=== PATIENT | male | born 1990 | race Caucasian/White ===

== ENCOUNTER 2017-06-25 07:30 | Emergency (ER) | payer SELFPAY ==
[~2017-06-25] VITALS: Ht 154.9 cm; Wt 57.0 kg
[2017-06-25] MEDS ORDERED: LORAZEPAM 2MG/ML CPJ IV STA (07:34)
[2017-06-25] MEDS ORDERED: OLANZAPINE 10 MG/VIAL IM STA (07:34)
[2017-06-25 08:01] LABS: BASOPHILS % 0.7 % (0.0-2.0); EOSINOPHILS % 4.4 % (0.0-5.0); HEMATOCRIT. 42.6 % (42.0-52.0); HEMOGLOBIN. 14.5 g/dL (14.0-18.0); LYMPHOCYTES % 34.6 % (20.0-50.0); MEAN CORPUSCULAR HEMOGLOBIN 31.9 pg (28.0-32.0); MEAN CORPUSCULAR VOLUME 93.6 fL (80.0-94.0); MEAN PLATELET VOLUME 7.3 fl (7.4-10.4); MONOCYTES % 10.6 % (2.0-8.0); NEUTROPHILS % 49.7 % (40.0-76.0); PLATELET 211 x1000/uL (130-400); RED BLOOD CELL COUNT 4.55 mill/uL (4.7-6.1); RED CELL DISTRIBUTION WIDTH 13.7 % (11.6-14.6)
[2017-06-25 08:14] LABS: AMMONIA 34 uMol/L (<32)
[2017-06-25 08:23] LABS: CARBON DIOXIDE 28 mEq/L (21-32); CHLORIDE 107 mEq/L (98-107); ETHANOL BLOOD < 10 mg/dL
[2017-06-25 09:27] LABS: *AMPHETAMINES SCREEN URINE PRESUMTIVE POSITIVE (NEGATIVE); *BARBITURATES SCREEN URINE NEGATIVE (NEGATIVE); *BENZODIAZEPINES SCREEN URINE NEGATIVE (NEGATIVE); *COCAINE SCREEN URINE NEGATIVE (NEGATIVE); CANNABINOID URINE SCREEN PRESUMTIVE POSITIVE (NEGATIVE); METHADONE URINE SCREEN NEGATIVE (NEGATIVE); OPIATES URINE SCREEN NEGATIVE (NEGATIVE); PHENCYCLIDINE URINE SCREEN NEGATIVE (NEGATIVE)
[2017-06-25 09:30] LABS: GLUCOSE URINE NEGATIVE (NEGATIVE); KETONES URINE TRACE (NEGATIVE); LEUKOCYTE ESTERASE URINE 3+ (NEGATIVE); NITRITE URINE NEGATIVE (NEGATIVE); OCCULT BLOOD URINE NEGATIVE (NEGATIVE); PH URINE 6.5 (4.5-8.0); PROTEIN URINE NEGATIVE (NEGATIVE); SPECIFIC GRAVITY URINE 1.022 (1.005-1.030)
[2017-06-25 09:33] LABS: CLARITY URINE CLOUDY (CLEAR); COLOR URINE DARK YELLOW (YELLOW)
[2017-06-25] MEDS ORDERED: CEFTRIAXONE SODIUM 250 MG/VIAL IM ONE (10:15)
[2017-06-25] MEDS ORDERED: AZITHROMYCIN 500 MG in DEXT 5% WATER 250 ML IV SCH (10:15)
[2017-06-25 14:04] VITALS: BP 115/69
== END 2017-06-25 14:49 | disposition home or self-care (01) ==
LOC: ER 07:41
DX: F15.10 Other stimulant abuse, uncomplicated (principal); F20.9 Schizophrenia, unspecified
CPT/HCPCS: 36415; 80053; 80305; 80307; 80329; 81001; 82140; 84443; 85025; 93005; 96372; 96374; 96375; 99285; G0482; J0456; J0696; J2060; J3490; Z7610; J7060; A4315

== ENCOUNTER 2017-08-07 05:45 | Emergency (ER) | payer MEDICAID ==
[~2017-08-07] VITALS: Ht 157.5 cm; Wt 57.0 kg
[2017-08-07] MEDS ORDERED: LORAZEPAM 2MG/ML CPJ IM STA (06:33)
[2017-08-07] MEDS ORDERED: OLANZAPINE 10 MG/VIAL IM ONE ×2 (07:00→13:15)
[2017-08-07 07:34] LABS: BASOPHILS % 0.4 % (0.0-2.0); EOSINOPHILS % 1.9 % (0.0-5.0); HEMATOCRIT. 42.7 % (42.0-52.0); HEMOGLOBIN. 14.9 g/dL (14.0-18.0); LYMPHOCYTES % 23.8 % (20.0-50.0); MEAN CORPUSCULAR HEMOGLOBIN 31.8 pg (28.0-32.0); MEAN CORPUSCULAR VOLUME 91.2 fL (80.0-94.0); MEAN PLATELET VOLUME 7.4 fl (7.4-10.4); NEUTROPHILS % 64.9 % (40.0-76.0); PLATELET 174 x1000/uL (130-400); RED BLOOD CELL COUNT 4.68 mill/uL (4.7-6.1); RED CELL DISTRIBUTION WIDTH 13.8 % (11.6-14.6)
[2017-08-07 07:48] LABS: CARBON DIOXIDE 25 mEq/L (21-32); CHLORIDE 106 mEq/L (98-107); ETHANOL BLOOD < 10 mg/dL
[2017-08-07 08:51] LABS: CLARITY URINE CLEAR (CLEAR); COLOR URINE YELLOW (YELLOW); GLUCOSE URINE NEGATIVE (NEGATIVE); KETONES URINE 1+ (NEGATIVE); LEUKOCYTE ESTERASE URINE TRACE (NEGATIVE); NITRITE URINE NEGATIVE (NEGATIVE); OCCULT BLOOD URINE NEGATIVE (NEGATIVE); PH URINE 6.5 (4.5-8.0); PROTEIN URINE 1+ (NEGATIVE); SPECIFIC GRAVITY URINE 1.018 (1.005-1.030)
[2017-08-07 09:25] LABS: *AMPHETAMINES SCREEN URINE PRESUMTIVE POSITIVE (NEGATIVE); *BARBITURATES SCREEN URINE NEGATIVE (NEGATIVE); *BENZODIAZEPINES SCREEN URINE NEGATIVE (NEGATIVE); *COCAINE SCREEN URINE NEGATIVE (NEGATIVE); CANNABINOID URINE SCREEN PRESUMTIVE POSITIVE (NEGATIVE); METHADONE URINE SCREEN NEGATIVE (NEGATIVE); OPIATES URINE SCREEN NEGATIVE (NEGATIVE); PHENCYCLIDINE URINE SCREEN NEGATIVE (NEGATIVE)
[2017-08-07] MEDS ORDERED: LORAZEPAM 2MG/ML CPJ IV ONE (10:15)
[2017-08-07 11:28] LABS: HEPATITIS B SURFACE ANTIGEN NEGATIVE
[2017-08-07 21:20] VITALS: BP 119/81
== END 2017-08-07 22:32 | disposition home or self-care (01) ==
LOC: ER 05:46
DX: F15.129 Other stimulant abuse with intoxication, unspecified (principal); R45.1 Restlessness and agitation; R44.0 Auditory hallucinations; R44.1 Visual hallucinations; F99 Mental disorder, not otherwise specified; F91.8 Other conduct disorders; Z78.1 Physical restraint status; Z91.19 Patient's noncompliance with other medical treatment and regimen
CPT/HCPCS: 36415; 80053; 80305; 81001; 85025; 93005; 96372; 96374; 99285; G0482; J2060; J3490; Z7610; A4315

== ENCOUNTER 2021-05-08 05:36 | Emergency (ER) | payer MEDICAID ==
[~2021-05-08] VITALS: Ht 167.6 cm; Wt 55.0 kg
[2021-05-08] MEDS: LORAZEPAM 1MG TABLET PO ONE (06:17)
[2021-05-08] MEDS: KETOROLAC 60MG/2ML VIAL IM ONE (06:18)
[2021-05-08] MEDS ORDERED: IBUP-2029 MT (06:43)
[2021-05-08] MEDS ORDERED: LORA-249 MT (06:43)
[2021-05-08 06:56] VITALS: BP 127/89
== END 2021-05-08 06:57 | disposition home or self-care (01) ==
LOC: ER 05:36
DX: F15.10 Other stimulant abuse, uncomplicated (principal); Z94.4 Liver transplant status
CPT/HCPCS: 96372; 99283; J1885; Z7610

== ENCOUNTER 2021-09-14 17:57 | Emergency (ER) | payer MEDICAID ==
[~2021-09-14] VITALS: Ht 162.6 cm; Wt 53.0 kg
[~2021-09-14 17:57] MED LIST: IBUP-2029 MT; LORA-249 MT
[2021-09-14] MEDS ORDERED: SODIUM CHLORIDE 0.9% 1,000 ML IV ONE (18:45)
[2021-09-14 19:15] LABS: BASOPHILS % 0.7 % (0.0-2.0); EOSINOPHILS % 1.3 % (0.0-5.0); HEMATOCRIT. 41.2 % (42.0-52.0); HEMOGLOBIN. 14.7 g/dL (14.0-18.0); LYMPHOCYTES % 28.8 % (20.0-50.0); MEAN CORPUSCULAR HEMOGLOBIN 33.3 pg (28.0-32.0); MEAN CORPUSCULAR VOLUME 93.3 fL (80.0-94.0); MEAN PLATELET VOLUME 7.4 fl (7.4-10.4); MONOCYTES % 11.1 % (2.0-8.0); NEUTROPHILS % 58.1 % (40.0-76.0); PLATELET 251 x1000/uL (130-400); RED BLOOD CELL COUNT 4.42 mill/uL (4.7-6.1); RED CELL DISTRIBUTION WIDTH 13.4 % (11.6-14.6)
[2021-09-14 19:22] LABS: CHLORIDE 99 mEq/L (98-107)
[2021-09-14 19:29] LABS: ETHANOL BLOOD < 10 mg/dL
[2021-09-14] MEDS ORDERED: POTASSIUM CHLORIDE 20MEQ TABLET SR PO ONE (19:30)
[2021-09-14] MEDS ORDERED: HALOPERIDOL LACTATE 5MG/ML VIAL IM ONE (22:45)
[2021-09-15 03:27] LABS: *AMPHETAMINES SCREEN URINE PRESUMTIVE POSITIVE (NEGATIVE); *BARBITURATES SCREEN URINE NEGATIVE (NEGATIVE); *BENZODIAZEPINES SCREEN URINE NEGATIVE (NEGATIVE); *COCAINE SCREEN URINE NEGATIVE (NEGATIVE); METHADONE URINE SCREEN NEGATIVE (NEGATIVE); OPIATES URINE SCREEN PRESUMTIVE POSITIVE (NEGATIVE)
[2021-09-15 03:28] LABS: CANNABINOID URINE SCREEN PRESUMTIVE POSITIVE (NEGATIVE); PHENCYCLIDINE URINE SCREEN NEGATIVE (NEGATIVE)
[2021-09-15] MEDS: HALOPERIDOL 5MG TABLET PO SCH ×2 (10:30→21:31)
[2021-09-16] MEDS: HALOPERIDOL 5MG TABLET PO SCH ×2 (09:35→21:57)
[2021-09-17] MEDS: HALOPERIDOL 5MG TABLET PO SCH ×2 (10:45→21:00)
[2021-09-17 11:14] LABS: CLARITY URINE CLEAR (CLEAR); COLOR URINE YELLOW (YELLOW); KETONES URINE NEGATIVE (NEGATIVE); LEUKOCYTE ESTERASE URINE NEGATIVE (NEGATIVE); NITRITE URINE NEGATIVE (NEGATIVE); OCCULT BLOOD URINE NEGATIVE (NEGATIVE); PH URINE 8.5 (4.5-8.0); PROTEIN URINE NEGATIVE (NEGATIVE); SPECIFIC GRAVITY URINE 1.014 (1.005-1.030); UROBILINOGEN URINE 0.2 E.U./dL (0.2-1.0)
[2021-09-17] MEDS ORDERED: LORAZEPAM 1MG TABLET PO ONE (18:00)
[2021-09-18] MEDS: HALOPERIDOL 5MG TABLET PO SCH ×2 (09:00→21:28)
[2021-09-19] MEDS: HALOPERIDOL 5MG TABLET PO SCH ×2 (10:39→21:17)
[2021-09-19] MEDS ORDERED: BENZ1TAB7 PO (10:56)
[2021-09-19] MEDS ORDERED: LITHBID MT ×2 (10:56)
[2021-09-19] MEDS ORDERED: TACROLIMUS 1MG/PACKET PO SCH (11:00)
[2021-09-19] MEDS ORDERED: TACROLIMUS 1MG CAPSULE PO SCH (11:03)
[2021-09-20 07:08] VITALS: BP 115/74
[2021-09-20] MEDS ORDERED: BENZTROPINE MESYLATE 0.5MG TABLET PO SCH (09:00)
[2021-09-20] MEDS: HALOPERIDOL 5MG TABLET PO SCH (10:29)
== END 2021-09-20 14:10 | disposition left against medical advice (07) ==
LOC: ER 17:57
DX: F28 Other psychotic disorder not due to a substance or known physiological condition (principal); F15.10 Other stimulant abuse, uncomplicated; F16.10 Hallucinogen abuse, uncomplicated; F12.10 Cannabis abuse, uncomplicated; F31.9 Bipolar disorder, unspecified; F11.10 Opioid abuse, uncomplicated; Z75.1 Person awaiting admission to adequate facility elsewhere; Z94.4 Liver transplant status; Z20.822 Contact with and (suspected) exposure to COVID-19
CPT/HCPCS: 36415; 80053; 80320; 84484; 85025; 93005; 96360; 96361; 96372; 99285; J1630; J7030; J7507; G0480

== ENCOUNTER 2022-03-21 10:28 | Emergency (ER) | payer MEDICAID, OTHER ==
[~2022-03-21] VITALS: Ht 165.1 cm; Wt 70.0 kg
[~2022-03-21 10:28] MED LIST changes: +BENZ1TAB7 PO; +LITHBID MT
[2022-03-21 11:20] LABS: BASOPHILS % 0.6 % (0.0-2.0); EOSINOPHILS % 2.7 % (0.0-5.0); HEMATOCRIT. 42.5 % (42.0-52.0); HEMOGLOBIN. 14.8 g/dL (14.0-18.0); LYMPHOCYTES % 31.1 % (20.0-50.0); MEAN CORPUSCULAR HEMOGLOBIN 32.8 pg (28.0-32.0); MEAN CORPUSCULAR VOLUME 94.1 fL (80.0-94.0); MEAN PLATELET VOLUME 7.2 fl (7.4-10.4); NEUTROPHILS % 55.6 % (40.0-76.0); PLATELET 266 x1000/uL (130-400); RED BLOOD CELL COUNT 4.51 mill/uL (4.7-6.1); RED CELL DISTRIBUTION WIDTH 13.7 % (11.6-14.6)
[2022-03-21] MEDS ORDERED: LIDOCAINE HCL/EPINEPHRINE 1%-EPI 1:100,000 20 ML VIAL INFIL ONE (11:30)
[2022-03-21 11:34] LABS: CHLORIDE 105 mEq/L (98-107)
[2022-03-21 11:41] LABS: ETHANOL BLOOD < 10 mg/dL
[2022-03-21 11:44] LABS: CLARITY URINE CLEAR (CLEAR); COLOR URINE YELLOW (YELLOW); KETONES URINE TRACE (NEGATIVE); LEUKOCYTE ESTERASE URINE NEGATIVE (NEGATIVE); NITRITE URINE NEGATIVE (NEGATIVE); OCCULT BLOOD URINE NEGATIVE (NEGATIVE); PH URINE 6.5 (4.5-8.0); PROTEIN URINE 1+ (NEGATIVE); SPECIFIC GRAVITY URINE 1.021 (1.005-1.030)
[2022-03-21 12:17] LABS: *AMPHETAMINES SCREEN URINE PRESUMTIVE POSITIVE (NEGATIVE); *BARBITURATES SCREEN URINE NEGATIVE (NEGATIVE); *BENZODIAZEPINES SCREEN URINE NEGATIVE (NEGATIVE); *COCAINE SCREEN URINE NEGATIVE (NEGATIVE); CANNABINOID URINE SCREEN PRESUMTIVE POSITIVE (NEGATIVE); METHADONE URINE SCREEN NEGATIVE (NEGATIVE); OPIATES URINE SCREEN NEGATIVE (NEGATIVE); PHENCYCLIDINE URINE SCREEN PRESUMTIVE POSITIVE (NEGATIVE)
[2022-03-21 12:37] VITALS: BP 109/67
== END 2022-03-21 12:37 | disposition home or self-care (01) ==
LOC: ER 10:28
DX: F19.10 Other psychoactive substance abuse, uncomplicated (principal); F20.9 Schizophrenia, unspecified; F31.9 Bipolar disorder, unspecified; F17.290 Nicotine dependence, other tobacco product, uncomplicated; F12.10 Cannabis abuse, uncomplicated; F15.10 Other stimulant abuse, uncomplicated; Z79.899 Other long term (current) drug therapy
CPT/HCPCS: 36415; 80053; 80178; 80305; 80307; 80320; 80329; 81003; 85025; 99283; G0480